=== PATIENT | female | born 1980 | race Caucasian/White ===

== ENCOUNTER 2019-10-18 11:33 | Emergency (ER) | payer OTHER ==
[~2019-10-18] VITALS: Ht 160 cm; Wt 68.0 kg
[2019-10-18] MEDS ORDERED: CLONAZEPAM 0.50.5 M1 PO (11:46)
[2019-10-18] MEDS ORDERED: NAPROSYN500 MG PO (12:58)
[2019-10-18] MEDS ORDERED: ROBAXIN 750 MG750 MG PO ×2 (12:58→13:01)
[2019-10-18 13:18] VITALS: BP 125/70
== END 2019-10-18 13:19 | disposition home or self-care (01) ==
LOC: M.ERS 11:33
DX: S46.811A Strain of other muscles, fascia and tendons at shoulder and upper arm level, right arm, initial encounter (principal); Z86.718 Personal history of other venous thrombosis and embolism; Z86.2 Personal history of diseases of the blood and blood-forming organs and certain disorders involving the immune mechanism; Z91.018 Allergy to other foods; X50.9XXA Other and unspecified overexertion or strenuous movements or postures, initial encounter; Y93.89 Activity, other specified; Y92.89 Other specified places as the place of occurrence of the external cause; Y99.0 Civilian activity done for income or pay